=== PATIENT | male | born 1970 | race Caucasian/White ===

== ENCOUNTER 2019-09-27 11:02 | Observation (INO) | payer OTHER ==
[~2019-09-27] VITALS: Ht 175.3 cm; Wt 87.5 kg
--- NOTE | ~2019-09-27 | OP ---
PATIENT NAME: KAYLA ROMERO MEDICAL RECORD: [id number] :72 LOCATION:[id number] ADMISSION DATE:09/27/19 SURGEON: SKY WINKLER MD DATE OF OPERATION: 09/27/2019 PREOPERATIVE DIAGNOSES: 1. Acute appendicitis with localized peritonitis. 2. Hypothyroidism. POSTOPERATIVE DIAGNOSES: 1. Acute appendicitis with localized peritonitis. 2. Hypothyroidism. PROCEDURE: Laparoscopic appendectomy. SURGEON: Sky Winkler MD REPORT OF PROCEDURE: The patient's abdomen was prepped and draped in sterile fashion. A cutdown was made on the superior aspect of the umbilicus, 0 Vicryls were placed in the fascia bilaterally and the fascia was incised with 15-blade. I then bluntly entered the peritoneal cavity and placed a 12-mm Selene port. Under direct visualization, a 5-mm trocar was placed in the left lower quadrant and another was placed in the suprapubic region. The appendix was easily visualized and noted to be inflamed in its mid-section. The tip and the base of the appendix appeared normal. A window was made in the mesoappendix near its base and the appendix was transected at its base near the cecum using a 45 blue load Endo-ASHWINI stapler. We freed up the mesentery of the mesoappendix and eventually transected this using a 45 white load Endo-ASHWINI stapler. The appendix was placed into an Endo Catch bag. Any bleeding from the staple line was treated with electrocautery. At this point, the ports and insufflation were then removed. The fascia of the umbilicus was closed with interrupted 0 Vicryls times 3. The wounds were irrigated out with normal saline and infused with 10 mL of 0.25% Marcaine with epinephrine. The skin incisions were all closed with subcutaneous 5-0 Monocryl and dressed appropriately. COMPLICATIONS: None. CONDITION: Stable. ANESTHESIA: General endotracheal and local. BLOOD LOSS: Minimal. TRANSINT:[id number] Voice Confirmation ID: [id number] DOCUMENT ID: [id number] SKY WINKLER MD CC: RICHELLE ALEMAN [id number] DICTATION DATE: 09/27/19 1608 LINUX NETWORK ADMINISTRATOR: 09/27/19 1756 ADM IN [place] [address] [place] [address]
--- NOTE | 2019-09-27 11:15 | NUR ---
DIRECT ADMIT, STARTED HIS IV 22 G RIGHT ARM. ALERT, WALKING AROUND. HE HAS SOME PAIN IN THE RLQ.
[2019-09-27 11:53] VITALS: BP 155/83; Ht 175.3 cm; Wt 87.5 kg
--- NOTE | 2019-09-27 14:41 | NUR ---
SURGERY IS HERE TO GET HIM. CONSENTS ARE SIGNED, HE IS VOIDING. ANTIBIOTICS ARE WITH THE PATIENT.
[2019-09-27 16:00] VITALS: BP 112/67
[2019-09-27] MEDS ORDERED: HYDROCODON-ACE1 EA10 PO (16:04)
[2019-09-27 16:43] VITALS: BP 123/52
--- NOTE | 2019-09-27 18:46 | NUR ---
DISCHARGE PAPERWORK GONE OVER WITH. HE VOIDED 200 CC, TOOK PO PAIN MED, TOLERATED HIS DINNER. TOOK IV OUT. WALKED DOWN WITH HIM, HIS IS HIS RIDE.
--- NOTE | 2019-09-29 07:20 | HP ---
PATIENT: KAYLA ROMERO MEDICAL RECORD: [id number] ACCOUNT: [id number] LOCATION:[id number] : 72 ADMISSION DATE: 09/27/19 PCP: RICHELLE ALEMAN MD HISTORY AND PHYSICAL EXAMINATION REASON FOR ADMISSION: Right lower quadrant abdominal pain with nausea. HISTORY OF PRESENT ILLNESS: The patient is a 49-year-old male with history of hypothyroidism, who awakened at 3:00 a.m. this morning with right lower quadrant pain. It has been continuous and more intense. Denies fevers, had some nausea. Had a normal BM this morning. Denies recent abdominal trauma. He is evaluated in the office with McBurney's point tenderness and a white count of 18,000. He is now directly admitted for surgical consultation with Dr. Sky Proctor for presumed appendectomy. He has been on Keflex 500 mg t.i.d. for a left mandibular tooth abscess, but has been afebrile. PAST MEDICAL HISTORY: Hypothyroidism, lumbar disc disease with lumbar osteoarthritis, spondylolisthesis grade II. PAST SURGICAL HISTORY: He had bowel obstruction with surgery on his large bowel in the . ALLERGIES: None known. MEDICATIONS: Levothyroxine 88 mcg p.o. q.a.m. a.c. SOCIAL HISTORY: Nonsmoker, nondrinker. He is , fulltime employed. FAMILY HISTORY: Father at 57 from COPD. He was a smoker. Mother at 45 due to CAD and myocardial infarction. REVIEW OF SYSTEMS: CONSTITUTIONAL: No fever or fatigue. HEENT: No recent visual change, sinus congestion, sore throat, or hearing loss. RESPIRATORY: No SOB or cough. CARDIAC: No chest pain or claudication. GASTROINTESTINAL: Nausea without vomiting for the last 9 hours. He has had right lower quadrant abdominal pain increasingly worse with coughing or walking. Denies any change in stools, normal BM this morning. ENDOCRINE: Denies polyuria, polydipsia, heat or cold intolerance. NEUROLOGIC: No history of stroke, TIA, or vascular headaches. MUSCULOSKELETAL: Chronic lumbago without sciatica. INTEGUMENT: No rash or itching. DENTITION: He has had tooth abscess for the last month in his left lower mandibular area. PHYSICAL EXAMINATION: VITAL SIGNS: Temperature is 98.7, heart rate 80, pressure 110/70, his height is 5 feet 9 inches, weight of 193. GENERAL: Alert and oriented. HEENT: Eyes are clear. Oropharynx unremarkable. NECK: Supple. CHEST: Clear. HEART: Regular without murmur. ABDOMEN: Soft with McBurney's point tenderness to minimal palpitation. HISTORY AND PHYSICAL [id number] KAYLA ROMERO Positive rebound sign. Bowel sounds are active. NEUROLOGICAL: Intact. EXTREMITIES: Unremarkable. LABORATORY DATA: White count is 18,000, white count with left shift. ASSESSMENT: 1. Acute appendicitis clinically. 2. History of stable hypothyroidism. 3. History of lumbar disc disease with osteoarthritis, stable. PLAN: The patient is medically stable to proceed with laparoscopic appendectomy. I have spoken with Dr. Proctor. We will see the patient and decide whether or not he needs preoperative CT scan of the abdomen. Further workup pending clinical course. TRANSINT:[id number] Voice Confirmation ID: [id number] DOCUMENT ID: [id number] RICHELLE ALEMAN MD at 0720 CC: [id number] DICTATION DATE: 09/27/19 1253 CUSHION FORMER: 09/27/19 1333 DIS IN 09/27/19 [facility] [address] [id number]
== END 2019-09-27 18:50 | disposition home or self-care (01) ==
LOC: D.OPS 11:02 → D.MS 11:08 → OBSVTIME 11:08 → D.MS 18:50
PROVIDERS: ADMIT Family Medicine; ATTEND Family Medicine
DX: K35.30 Acute appendicitis with localized peritonitis, without perforation or gangrene (principal); E03.9 Hypothyroidism, unspecified